=== PATIENT | male | born 1950 | race African-American/Black ===

== ENCOUNTER 2018-11-24 11:17 | Inpatient (IN) | payer OTHER ==
[2018-11-24 11:51] VITALS: BMI 23.5
--- NOTE | 2018-11-24 12:55 | HP ---
COWS - Scale Resting Pulse: 0= [place] 80 or Below Sweatin= Chills/Flushing Restless Observation: 1= Difficult to Sit Still Pupil Size: 1= Pupils >than Normal Bone or Joint Aches: 2= Severe Diffuse Aches Runny Nose/ Eye Tearin= Constantly Teary/Runny GI Upset > 30mins: 3= Vomiting/Diarrhea Tremor Observation: 2= Slight Tremor Visible Yawning Observation: 0= None Anxiety or Irritability: 2=Irritable/Anxious Goose Flesh Skin: 0=Smooth Skin COWS Score: 16 CIWA Score - Admission Criteria OASAS Guidelines: Admission for Medically Managed Detox: Requires at least one of the followin. CIWA greater than 12 2. Seizures within the past 24 hours 3. Delirium tremens within the past 24 hours 4. Hallucinations within the past 24 hours 5. Acute intervention needed for co occurring medical disorder 6. Acute intervention needed for co occurring psychiatric disorder 7. Severe withdrawal that cannot be handled at a lower level of care (continued vomiting, continued diarrhea, abnormal vital signs) requiring intravenous medication and/or fluids 8. Admission ROS [facility] Chief Complaint: withdrawal symptoms Allergies/Adverse Reactions: Allergies Allergy/AdvReac Type Severity Reaction Status Date / Time No Known Allergies Allergy Verified 11/24/18 11:32 History of Present Illness: 68 yo male with hx of heroin dependence and occasional use of cocaine and oxycontin is here seeking detox d/t withdrawal symptoms. Reports hx of prior detox, last detox [facility] 2013 Reports no significant period of sobriety PMHX: Asthma, left hip replacement Denies psych hx Reports one year ago blackout after unknowing using fentanyl, denies hx of overdose Exam Limitations: No Limitations - Ebola screening Have you traveled outside of the country in the last 21 days: No (N) Have you had contact with anyone from an Ebola affected area: No Do you have a fever: No - Review of Systems Constitutional: Chills, Diaphoresis, Weakness EENT: reports: Nose Congestion, Other (runny nose) Respiratory: reports: No Symptoms reported Cardiac: reports: No Symptoms Reported GI: reports: Diarrhea, Nausea, Poor Fluid Intake, Vomiting (since last night), Indigestion, Abdominal cramping : reports: No Symptoms Reported Musculoskeletal: reports: Joint Pain Integumentary: reports: No Symptoms Reported Neuro: reports: No Symptoms reported Endocrine: reports: Other (dry mouth) Hematology: reports: No Symptoms Reported Psychiatric: reports: Orientated x3, Anxious Other Systems: Reviewed and Negative Patient History - Patient Medical History Hx Anemia: No Hx Asthma: Yes Hx Chronic Obstructive Pulmonary Disease (COPD): No Hx Cancer: No Hx Cardiac Disorders: No Hx Congestive Heart Failure: No Hx Hypertension: No Hx Hypercholesterolemia: No Hx Pacemaker: No HX Cerebrovascular Accident: No Hx Seizures: No Hx Dementia: No Hx Diabetes: No Hx Gastrointestinal Disorders: No Hx Liver Disease: No Hx Genitourinary Disorders: No Hx Sexually Transmitted Disorders: Yes (herpes ) Hx Renal Disease (ESRD): No Hx Thyroid Disease: No Hx Human Immunodeficiency Virus (HIV): No Hx Hepatitis C: No Hx Depression: No Hx Suicide Attempt: No Hx Bipolar Disorder: No Hx Schizophrenia: No - Patient Surgical History Past Surgical History: Yes Other Surgical History: eft hip replacement, 2013 - PPD History Previous Implant?: No Documented Results: Negative w/o proof PPD to be Administered?: Yes - Smoking Cessation Smoking history: Never smoked Hx Chewing Tobacco Use: No Initiated information on smoking cessation: No - Substance & Tx. History Hx Alcohol Use: No Hx Substance Use: Yes Substance Use Type: Heroin Hx Substance Use Treatment: Yes ( last detox [facility] 2013) - Substances abused Heroin Substance route: Inhalation Frequency: Daily Amount used: 4 bags Age of first use: 23 Date of last use: 11/21/18 (9PM) Oxycontin Substance route: Oral Frequency: 1-2 times per week Amount used: 1 tab Age of first use: 68 Date of last use: 11/21/18 Cocaine Substance route: Inhalation Amount used: $5 Age of first use: 21 Date of last use: 11/21/18 Family Disease History - Family Disease History Family Disease History: Other: Father (alcoholism ) Admission Physical Exam BHS - Vital Signs Vital Signs: Vital Signs - 24 hr 11/24/18 11:31 Temperature 96.9 F L Pulse Rate 51 L Respiratory 20 Rate Blood Pressure 151/70 - Physical General Appearance: Yes: Appropriately Dressed, Mild Distress, Thin, Sweating, Anxious HEENTM: Yes: EOMI, Hearing grossly Normal, Normal ENT Inspection, Normocephalic , Normal Voice, GORDON, Pharynx Normal, Tm's normal Respiratory: Yes: Chest Non-Tender, Lungs Clear, Normal Breath Sounds, No Respiratory Distress, No Accessory Muscle Use Neck: Yes: Within Normal Limits Breast: Yes: Breast Exam Deferred Cardiology: Yes: Regular Rhythm, Regular Rate, Murmur Abdominal: Yes: Normal Bowel Sounds, Soft, Tenderness (mid epigastric) Genitourinary: Yes: Within Normal Limits Back: Yes: Normal Inspection Musculoskeletal: Yes: full range of Motion, Gait Steady, Pelvis Stable, Back pain Extremities: Yes: Normal Capillary Refill, Normal Inspection, Normal Range of Motion, Non-Tender 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, Fully Oriented, Alert, Motor Strength 5/5, Depressed Affect Integumentary: Yes: Normal Color, Warm, Diaphoresis Lymphatic: Yes: Within Normal Limits - Diagnostic (1) Asthma Current Visit: Yes Status: Chronic Qualifiers: Asthma severity: moderate Asthma persistence: unspecified Asthma complication type: uncomplicated Qualified Code(s): J45.909 - Unspecified asthma, uncomplicated (2) Opioid dependence with withdrawal Current Visit: Yes Status: Acute (3) Nausea & vomiting Current Visit: Yes Status: Acute Qualifiers: Vomiting Intractability: unspecified Cleared for Admission [facility] - Detox or Rehab [facility] Level of Care: Medically Managed Detox Regimen/Protocol: Methadone Breathalyzer - Breathalyzer Breathalyzer: 0 Urine Drug Screen - Test Device Lot number: [id number] Expiration date: 06/26/20 - Control Is test valid?: Yes - Results Drug screen NEGATIVE: No Urine drug screen results: STEPHANIE-Cocaine, MOP-Opiates, OXY-Oxycodone Inpatient Rehab Admission - Rehab Decision to Admit Inpatient rehab admission?: No
[2018-11-24] MEDS ORDERED: ALBUTEROL SO4 8 GM HFA INHALER IH PRN (12:58)
[2018-11-24] MEDS ORDERED: ALBUTEROL SO4 2.5/IPRATROPIUM 0.5 INH SOL 3 ML VIAL.NEB. NEB PRN (13:01)
[2018-11-24] MEDS ORDERED: MAGNESIUM CITRATE 300 ML BOTTLE PO PRN (13:01)
[2018-11-24] MEDS ORDERED: cloNIDine HCL 0.1 MG TABLET PO PRN (13:01)
[2018-11-24] MEDS ORDERED: METHOCARBAMOL 500 MG TABLET PO PRN (13:01)
[2018-11-24] MEDS ORDERED: IBUPROFEN 400 MG TABLET (FP) PO PRN (13:01)
[2018-11-24] MEDS ORDERED: MAG HYDROX/AL HYDROX/SIMETH 30 ML UNIT-DOSE CUP PO PRN (13:01)
[2018-11-24] MEDS ORDERED: BISMUTH SUBSALICYLATE 524 MG/30 ML UD PO PRN (13:01)
[2018-11-24] MEDS ORDERED: P-EPHED 60MG/TRIPROLIDI 2.5MG TABLET PO PRN (13:01)
[2018-11-24] MEDS ORDERED: guaiFENesin 200 MG/10 ML 10 ML UNIT-DOSE CUPS PO PRN (13:01)
[2018-11-24] MEDS ORDERED: MELATONIN 5 MG TABLETS PO PRN (13:01)
[2018-11-24] MEDS ORDERED: MAGNESIUM HYDROX 2400MG/30ML ORAL SUSPENSION 30 ML CUP PO PRN (13:01)
[2018-11-24] MEDS ORDERED: MENTHOL/PHENOL 1 EACH UD MM PRN (13:01)
[2018-11-24] MEDS ORDERED: ACETAMINOPHEN 325 MG TABLET (FP) PO PRN ×2 (13:01)
[2018-11-24] MEDS ORDERED: METHADONE HCL 10 MG TABLET (FOR DETOX USE ONLY) PO ONE ×2 (14:00→23:00)
[2018-11-24] MEDS: PANTOPRAZOLE 20 MG TABLET (FP) PO SCH (14:11)
[2018-11-24] MEDS: diazePAM 5 MG TABLET PO PRN ×2 (14:11→22:07)
--- NOTE | 2018-11-24 14:37 | EKG ---
Test Reason : Blood Pressure : / mmHG Vent. Rate : 053 BPM Atrial Rate : 053 BPM P-R Int : 152 ms QRS Dur : 076 ms QT Int : 486 ms P-R-T Axes : 053 077 064 degrees QTc Int : 456 ms SINUS BRADYCARDIA LEFT VENTRICULAR HYPERTROPHY BORDERLINE ECG Confirmed by MD IKER, JULIO CESAR ([id number]) on 11/24/2018 2:37:14 PM Referred By: Confirmed By:JULIO CESAR DONG MD
[2018-11-24 17:49] LABS: PH,URINE 8.5 (5.0-8.0); URINE APPEARANCE CLEAR; URINE BILIRUBIN NEGATIVE (NEGATIVE); URINE COLOR YELLOW; URINE GLUCOSE (UA) NEGATIVE (NEGATIVE); URINE KETONE NEGATIVE (NEGATIVE); URINE LEUK ESTERASE NEGATIVE (NEGATIVE); URINE NITRITE NEGATIVE (NEGATIVE); URINE PROTEIN NEGATIVE (NEGATIVE); URINE UROBILINOGEN 0.2 mg/dL (0.2-1.0)
[2018-11-24] MEDS: THIAMINE HCL 100 MG TABLET (FP) PO SCH (22:07)
[2018-11-24] MEDS: MONTELUKAST NA 10 MG TABLET PO SCH (22:07)
--- NOTE | 2018-11-25 09:51 | PN ---
BHS COWS - Scale Resting Pulse: 0= [place] 80 or Below Sweatin= Chills/Flushing Restless Observation: 1= Difficult to Sit Still Pupil Size: 1= Pupils >than Normal Bone or Joint Aches: 1= Mild Discomfort Runny Nose/ Eye Tearin= Nasal Congestion GI Upset > 30mins: 1= Stomach Cramp Tremor Observation of Outstretched Hands: 2= Slight Tremor Visible Yawning Observation: 1= 1-2x During Session Anxiety or Irritability: 2=Irritable/Anxious Goose Flesh Skin: 3=Piloerection COWS Score: 14 BHS Progress Note (SOAP) Subjective: body ache tired poor toleration to regular food Objective: 11/25/18 09:51 Vital Signs Temperature 98.2 F 11/25/18 09:24 Pulse Rate 55 L 11/25/18 09:24 Respiratory Rate 18 11/25/18 09:24 Blood Pressure 141/74 11/25/18 09:24 O2 Sat by Pulse Oximetry (%) Laboratory Last Values Urine Color Yellow 11/24/18 15:45 Urine Appearance Clear 11/24/18 15:45 Urine pH 8.5 (5.0-8.0) H 11/24/18 15:45 Ur Specific [place] 1.014 (1.010-1.035) 11/24/18 15:45 Urine Protein Negative (NEGATIVE) 11/24/18 15:45 Urine Glucose (UA) Negative (NEGATIVE) 11/24/18 15:45 Urine Ketones Negative (NEGATIVE) 11/24/18 15:45 Urine Blood Negative (NEGATIVE) 11/24/18 15:45 Urine Nitrite Negative (NEGATIVE) 11/24/18 15:45 Urine Bilirubin Negative (NEGATIVE) 11/24/18 15:45 Urine Urobilinogen 0.2 mg/dL (0.2-1.0) 11/24/18 15:45 Ur Leukocyte Esterase Negative (NEGATIVE) 11/24/18 15:45 lab noted Assessment: 11/25/18 09:52 opiate withdrawal sx Plan: continue detox
[2018-11-25] MEDS ORDERED: METHADONE HCL 5 MG TABLET (FOR DETOX USE ONLY) PO ONE (10:00)
[2018-11-25 10:11] LABS: HEMATOCRIT 41.4 % (35.4-49); HEMOGLOBIN 13.4 GM/dL (11.7-16.9); MCH 28.8 pg (25.7-33.7); MCHC 32.5 g/dl (32.0-35.9); MEAN CELL VOLUME 88.8 fl (80-96); MEAN PLT VOLUME 8.2 fl (7.5-11.1); PLATELET COUNT 339 K/MM3 (134-434); RBC 4.66 M/mm3 (4.00-5.60); RDW 14.8 % (11.9-15.9); WHITE BLOOD COUNT 7.8 K/mm3 (4.0-10.0)
[2018-11-25] MEDS: PANTOPRAZOLE 20 MG TABLET (FP) PO SCH (10:27)
[2018-11-25] MEDS: PRENATAL VITAMINS W/ FOLIC ACID TABLET (FP) PO SCH (10:27)
[2018-11-25] MEDS: diazePAM 5 MG TABLET PO PRN ×2 (10:27→22:07)
[2018-11-25] MEDS: FLUTICASONE PROPIONATE 44 MCG IH SCH (10:27)
[2018-11-25 10:32] LABS: ALBUMIN 3.8 g/dl (3.4-5.0); ALK PHOS 104 U/L (45-117); ANION GAP 7 MMOL/L (8-16); BILIRUBIN,TOTAL 0.4 mg/dL (0.2-1); BLOOD UREA NITROGEN 10 mg/dL (7-18); CHLORIDE 105 mmol/L (98-107); CO2 30 mmol/L (21-32); GLUCOSE,RANDOM 75 mg/dL (74-106); POTASSIUM 3.7 mmol/L (3.5-5.1); SGOT/AST 13 U/L (15-37); SGPT/ALT 18 U/L (13-61); SODIUM 142 mmol/L (136-145); TOT PROT 7.2 g/dl (6.4-8.2)
[2018-11-25] MEDS: MONTELUKAST NA 10 MG TABLET PO SCH (22:07)
[2018-11-25] MEDS: THIAMINE HCL 100 MG TABLET (FP) PO SCH (22:07)
[2018-11-26] MEDS ORDERED: METHADONE HCL 10 MG TABLET (FOR DETOX USE ONLY) PO ONE (10:00)
[2018-11-26] MEDS: PRENATAL VITAMINS W/ FOLIC ACID TABLET (FP) PO SCH (10:05)
[2018-11-26] MEDS: FLUTICASONE PROPIONATE 44 MCG IH SCH (10:05)
[2018-11-26] MEDS: PANTOPRAZOLE 20 MG TABLET (FP) PO SCH (10:07)
--- NOTE | 2018-11-26 11:39 | PN ---
BHS COWS - Scale Resting Pulse: 0= [place] 80 or Below Sweatin= Chills/Flushing Restless Observation: 0= Sits Still Pupil Size: 0= Normal to Room Light Bone or Joint Aches: 1= Mild Discomfort Runny Nose/ Eye Tearin= Nasal Congestion GI Upset > 30mins: 1= Stomach Cramp Tremor Observation of Outstretched Hands: 2= Slight Tremor Visible Yawning Observation: 2= >3x During Session Anxiety or Irritability: 2=Irritable/Anxious Goose Flesh Skin: 0=Smooth Skin COWS Score: 10 BHS Progress Note (SOAP) Subjective: feeling ok today ambulate on hallway social with peers in day room Objective: 11/26/18 11:38 Vital Signs Temperature 96.6 F L 11/26/18 09:14 Pulse Rate 51 L 11/26/18 09:14 Respiratory Rate 18 11/26/18 09:14 Blood Pressure 143/71 11/26/18 09:14 O2 Sat by Pulse Oximetry (%) Laboratory Last Values WBC 7.8 K/mm3 (4.0-10.0) 11/25/18 07:00 RBC 4.66 M/mm3 (4.00-5.60) 11/25/18 07:00 Hgb 13.4 GM/dL (11.7-16.9) 11/25/18 07:00 Hct 41.4 % (35.4-49) 11/25/18 07:00 MCV 88.8 fl (80-96) 11/25/18 07:00 MCH 28.8 pg (25.7-33.7) 11/25/18 07:00 MCHC 32.5 g/dl (32.0-35.9) 11/25/18 07:00 RDW 14.8 % (11.9-15.9) 11/25/18 07:00 Plt Count 339 K/MM3 (134-434) 11/25/18 07:00 MPV 8.2 fl (7.5-11.1) 11/25/18 07:00 Sodium 142 mmol/L (136-145) 11/25/18 07:00 Potassium 3.7 mmol/L (3.5-5.1) 11/25/18 07:00 Chloride 105 mmol/L (98-107) 11/25/18 07:00 Carbon Dioxide 30 mmol/L (21-32) 11/25/18 07:00 Anion Gap 7 MMOL/L (8-16) L 11/25/18 07:00 BUN 10 mg/dL (7-18) 11/25/18 07:00 Creatinine 1.0 mg/dL (0.55-1.3) 11/25/18 07:00 Creat Clearance w eGFR 74.76 (>60) 11/25/18 07:00 Random Glucose 75 mg/dL (74-106) 11/25/18 07:00 Calcium 9.0 mg/dL (8.5-10.1) 11/25/18 07:00 Total Bilirubin 0.4 mg/dL (0.2-1) 11/25/18 07:00 AST 13 U/L (15-37) L 11/25/18 07:00 ALT 18 U/L (13-61) 11/25/18 07:00 Alkaline Phosphatase 104 U/L (45-117) 11/25/18 07:00 Total Protein 7.2 g/dl (6.4-8.2) 11/25/18 07:00 Albumin 3.8 g/dl (3.4-5.0) 11/25/18 07:00 Urine Color Yellow 11/24/18 15:45 Urine Appearance Clear 11/24/18 15:45 Urine pH 8.5 (5.0-8.0) H 11/24/18 15:45 Ur Specific [place] 1.014 (1.010-1.035) 11/24/18 15:45 Urine Protein Negative (NEGATIVE) 11/24/18 15:45 Urine Glucose (UA) Negative (NEGATIVE) 11/24/18 15:45 Urine Ketones Negative (NEGATIVE) 11/24/18 15:45 Urine Blood Negative (NEGATIVE) 11/24/18 15:45 Urine Nitrite Negative (NEGATIVE) 11/24/18 15:45 Urine Bilirubin Negative (NEGATIVE) 11/24/18 15:45 Urine Urobilinogen 0.2 mg/dL (0.2-1.0) 11/24/18 15:45 Ur Leukocyte Esterase Negative (NEGATIVE) 11/24/18 15:45 RPR Titer Nonreactive (NONREACTIVE) 11/25/18 07:00 lab noted Assessment: 11/26/18 11:39 withdrawal sx Plan: continue detox
[2018-11-26 21:36] VITALS: TEMP 97.1
[2018-11-26] MEDS: THIAMINE HCL 100 MG TABLET (FP) PO SCH (22:04)
[2018-11-26] MEDS: MONTELUKAST NA 10 MG TABLET PO SCH (22:05)
[2018-11-26] MEDS: diazePAM 5 MG TABLET PO PRN (22:05)
[2018-11-27] MEDS ORDERED: METHADONE HCL 5 MG TABLET (FOR DETOX USE ONLY) PO ONE (06:00)
[2018-11-27 06:37] VITALS: BP 127/62; PULSE 52
--- NOTE | 2018-11-27 08:44 | DS ---
[facility] Detox Discharge Summary Admission Date: 11/24/18 Discharge Date: 11/27/18 - History Present History: Cocaine Dependence, Opioid Dependence Pertinent Past History: Pt admitted for OUD-pt states feeling fine today. completed methadone based detox. Will go for MAT methadone at [facility]- phone number given. Pt will go to [place] for primary care- pt does not need any discharge meds as he will be f/u with them. - Physical Exam Results Vital Signs: Vital Signs Temperature 97.1 F L 11/27/18 06:36 Pulse Rate 52 L 11/27/18 06:36 Respiratory Rate 18 11/27/18 06:36 Blood Pressure 127/62 11/27/18 06:36 O2 Sat by Pulse Oximetry (%) - Treatment Hospital Course: Detox Protocol Followed, Detoxed Safely, Responded well, Discharged Condition Good - Medication Discharge Medications: Ambulatory Orders Albuterol Sulfate Inhaler - [Ventolin Hfa Inhaler -] 2 inh PO Q4H PRN 11/24/18 Fluticasone Propionate [Flovent Diskus] 44 mcg IH DAILY MDD 2 puffs 11/24/18 - AMA Did Patient Leave Against Medical Advice: No
== END 2018-11-27 08:52 | disposition home or self-care (01) | DRG 897 ==
LOC: YASAS 11:17 → Y3N 13:31
PROVIDERS: ADMIT Surgery; ATTEND Surgery
PROC: HZ2ZZZZ Detoxification Services for Substance Abuse Treatment (ICD-10-PCS; principal; 2018-11-24)
DX: F11.23 Opioid dependence with withdrawal (principal); F14.20 Cocaine dependence, uncomplicated; J45.909 Unspecified asthma, uncomplicated; R11.2 Nausea with vomiting, unspecified; Z96.642 Presence of left artificial hip joint
CPT/HCPCS: 36415; 80053; 81003; 85027; 86593; 93005; 93010

== ENCOUNTER 2022-05-03 12:48 | Inpatient (IN) | payer OTHER ==
[2022-05-03 14:27] VITALS: BMI 23.5
[2022-05-03] MEDS ORDERED: IBUPROFEN 400 MG TABLET (FP) PO PRN (16:18)
[2022-05-03] MEDS ORDERED: cloNIDine HCL 0.1 MG TABLET PO PRN (16:18)
[2022-05-03] MEDS ORDERED: LOPERAMIDE HCL 2 MG CAPSULE PO PRN (16:18)
[2022-05-03] MEDS ORDERED: MAGNESIUM CITRATE 300 ML BOTTLE PO PRN (16:18)
[2022-05-03] MEDS ORDERED: MAGNESIUM HYDROX 2400MG/30ML ORAL SUSPENSION 30 ML CUP PO PRN (16:18)
[2022-05-03] MEDS ORDERED: DICYCLOMINE HCL 10 MG CAPSULE PO PRN (16:18)
[2022-05-03] MEDS ORDERED: MAG HYDROX/AL HYDROX/SIMETH 30 ML UNIT-DOSE CUP PO PRN (16:18)
[2022-05-03] MEDS ORDERED: ONDANSETRON *ODT* 4 MG TABLET SL PRN (16:18)
[2022-05-03] MEDS ORDERED: BENZOCAINE/MENTHOL (CHLORASEPTIC ) LOZENGE MM PRN (16:18)
[2022-05-03] MEDS ORDERED: ACETAMINOPHEN 325 MG TABLET (FP) PO PRN ×2 (16:18)
[2022-05-03] MEDS ORDERED: NALOXONE HCL (KLOXXADO) 8 MG SPRAY NS PRN (16:18)
[2022-05-03] MEDS ORDERED: NICOTINE 10 MG CARTRIDGE (INHALER) IH PRN (16:18)
[2022-05-03] MEDS ORDERED: IBUPROFEN 600 MG TABLET (FP) PO PRN (16:18)
[2022-05-03] MEDS ORDERED: BISMUTH SUBSALICYLATE 524 MG/30 ML PO PRN (16:18)
[2022-05-03] MEDS ORDERED: methaDONE HCL 10 MG TABLET (FOR DETOX USE ONLY) PO ONE (17:00)
[2022-05-03] MEDS: hydrOXYzine PAMOATE 25 MG CAPSULE (FP) PO SCH ×2 (17:38→22:30)
[2022-05-03] MEDS: METHOCARBAMOL 500 MG TABLET PO PRN (22:30)
[2022-05-03] MEDS: MELATONIN 5 MG TABLETS PO SCH (22:31)
[2022-05-03] MEDS: THIAMINE HCL 100 MG TABLET (FP) PO SCH (22:31)
[2022-05-04] MEDS: METHOCARBAMOL 500 MG TABLET PO PRN ×2 (06:12→11:10)
[2022-05-04] MEDS: hydrOXYzine PAMOATE 25 MG CAPSULE (FP) PO SCH ×5 (06:12→22:29)
[2022-05-04] MEDS: PRENATAL VITAMINS W/ FOLIC ACID TABLET (FP) PO SCH (10:30)
[2022-05-04] MEDS ORDERED: ALBUTEROL SO4 HFA INHALER IH PRN (12:08)
[2022-05-04 12:09] LABS: HEMATOCRIT 39.9 % (35.4-49); HEMOGLOBIN 12.6 GM/dL (11.7-16.9); MCHC 31.7 g/dl (32.0-35.9); MEAN CELL VOLUME 91.3 fl (80-96); PLATELET COUNT 318 10^3/uL (134-434); RBC 4.37 M/mm3 (4.00-5.60); RDW 14.5 % (11.9-15.9); WHITE BLOOD COUNT 5.5 K/mm3 (4.0-10.0)
[2022-05-04 12:18] LABS: CALCIUM 9.4 mg/dL (8.5-10.1)
[2022-05-04 12:19] LABS: ALBUMIN 3.8 g/dl (3.4-5.0); BLOOD UREA NITROGEN 16.3 mg/dL (7-18)
[2022-05-04 12:23] LABS: BILIRUBIN,TOTAL 0.4 mg/dL (0.2-1); TOT PROT 6.9 g/dl (6.4-8.2)
[2022-05-04] MEDS: MELATONIN 5 MG TABLETS PO SCH (22:29)
[2022-05-04] MEDS: THIAMINE HCL 100 MG TABLET (FP) PO SCH (22:29)
[2022-05-05] MEDS: METHOCARBAMOL 500 MG TABLET PO PRN (05:33)
[2022-05-05] MEDS: hydrOXYzine PAMOATE 25 MG CAPSULE (FP) PO SCH ×5 (05:33→22:15)
[2022-05-05] MEDS ORDERED: methaDONE HCL 10 MG TABLET (FOR DETOX USE ONLY) PO ONE (10:00)
[2022-05-05] MEDS: PRENATAL VITAMINS W/ FOLIC ACID TABLET (FP) PO SCH (10:10)
[2022-05-05] MEDS ORDERED: ALBUTEROL SO4 HFA INHALER IH PRN (10:38)
[2022-05-05] MEDS: MELATONIN 5 MG TABLETS PO SCH (22:15)
[2022-05-05] MEDS: THIAMINE HCL 100 MG TABLET (FP) PO SCH (22:15)
[2022-05-06] MEDS: hydrOXYzine PAMOATE 25 MG CAPSULE (FP) PO SCH ×5 (06:45→22:09)
[2022-05-06] MEDS: PRENATAL VITAMINS W/ FOLIC ACID TABLET (FP) PO SCH (10:08)
[2022-05-06] MEDS ORDERED: cloNIDine HCL 0.1 MG TABLET PO PRN (13:34)
[2022-05-06] MEDS: MELATONIN 5 MG TABLETS PO SCH (22:09)
[2022-05-06] MEDS: THIAMINE HCL 100 MG TABLET (FP) PO SCH (22:09)
[2022-05-07] MEDS: hydrOXYzine PAMOATE 25 MG CAPSULE (FP) PO SCH ×5 (05:56→22:13)
[2022-05-07] MEDS ORDERED: methaDONE HCL 10 MG TABLET (FOR DETOX USE ONLY) PO ONE (10:00)
[2022-05-07] MEDS: METHOCARBAMOL 500 MG TABLET PO PRN (10:23)
[2022-05-07] MEDS: PRENATAL VITAMINS W/ FOLIC ACID TABLET (FP) PO SCH (10:23)
[2022-05-07] MEDS: MELATONIN 5 MG TABLETS PO SCH (22:13)
[2022-05-07] MEDS: THIAMINE HCL 100 MG TABLET (FP) PO SCH (22:13)
[2022-05-08] MEDS: hydrOXYzine PAMOATE 25 MG CAPSULE (FP) PO SCH ×2 (06:29→10:13)
[2022-05-08 06:53] VITALS: RESP 18
[2022-05-08 09:14] VITALS: TEMP 97.1
[2022-05-08 09:53] VITALS: BP 137/82; PULSE 60
[2022-05-08] MEDS: PRENATAL VITAMINS W/ FOLIC ACID TABLET (FP) PO SCH (10:13)
== END 2022-05-08 10:08 | disposition home or self-care (01) | DRG 897 ==
LOC: YASAS 12:48 → Y6N 16:51
PROVIDERS: ADMIT Allergy & Immunology; ATTEND Surgery
PROC: HZ2ZZZZ Detoxification Services for Substance Abuse Treatment (ICD-10-PCS; principal; 2022-05-03)
DX: F11.23 Opioid dependence with withdrawal (principal); F14.10 Cocaine abuse, uncomplicated; J45.20 Mild intermittent asthma, uncomplicated; Z96.642 Presence of left artificial hip joint; Z86.19 Personal history of other infectious and parasitic diseases
CPT/HCPCS: 36415; 80053; 85027; 86780; C9803-CS; U0003; U0005